=== PATIENT | female | born 1945 | race Caucasian/White ===

== ENCOUNTER 2022-05-13 13:11 | Inpatient (IN) | payer MEDICARE, OTHER ==
[~2022-05-13] VITALS: Ht 175.3 cm; Wt 75.3 kg
[~2022-05-13 13:11] MED LIST: ATENOLOL-CHLOR1 EAC1 PO; POTASSIUM 10MEQ; TENORMIN; Z.0.GLUCOPHAGE1000 M PO; Z.0.PRILOSEC OTC20 M PO; [UNRECOGNIZED DRUG - OTHER]; [UNRECOGNIZED DRUG - OTHER]
[2022-05-13] MEDS ORDERED: ONDANSETRON HCL INJ 2MG/ML 2ML 2 MG/ML VIAL IV STA (14:14)
[2022-05-13] MEDS ORDERED: FENTANYL CITRATE/PF 100MCG/2 ML INJ IV ONE (14:15)
[2022-05-13] MEDS ORDERED: SODIUM CHLORIDE 0.9% 500ML 500 ML IV ONE (14:30)
[2022-05-13 15:13] LABS: BASOPHILS # (AUTO) 0.1 (0.0-0.1); BASOPHILS % 0.4 % (0.0-1.0); EOSINOPHILS # (AUTO) 0.1 (0.0-0.4); EOSINOPHILS % 1.1 % (0.0-6.0); HEMATOCRIT 38.7 % (34.2-44.1); LYMPHOCYTES # (AUTO) 1.3 (1.0-3.2); MEAN CORPUSCULAR HEMOGLOBIN 28.5 pg (28-32); MEAN CORPUSCULAR HGB CONC 33.6 g/dL (31-35); MEAN CORPUSCULAR VOLUME 84.9 fL (81-99); MONOCYTES # (AUTO) 0.7 (0.2-0.8); MONOCYTES % 5.9 % (4.4-11.3); NEUTROPHILS # (AUTO) 9.2 (2.1-6.9); PLATELET COUNT 213 x10e3/uL (140-360); RED BLOOD COUNT 4.56 x10e6/uL (3.6-5.1); RED CELL DISTRIBUTION WIDTH 14.6 % (11.7-14.4)
[2022-05-13] MEDS ORDERED: ACETAMINOPHEN 1000 MG/100 ML IV STA (15:16)
[2022-05-13 15:23] LABS: INR 0.96; PARTIAL THROMBOPLASTIN TIME 26.6 seconds (23.8-35.5); PROTHROMBIN TIME 13.7 seconds (11.9-14.5)
[2022-05-13 15:34] LABS: ALANINE AMINOTRANSFERASE 13 IU/L (0-55); ALBUMIN 4.1 g/dL (3.5-5.0); ALBUMIN/GLOBULIN RATIO 1.2 (0.8-2.0); ALKALINE PHOSPHATASE 65 IU/L (40-150); ANION GAP 19.6 mmol/L (8-16); BLOOD UREA NITROGEN 24 mg/dL (7-26); BUN/CREATININE RATIO 31 (6-25); CALCIUM 8.9 mg/dL (8.4-10.2); CARBON DIOXIDE 26 mmol/L (22-29); CHLORIDE 101 mmol/L (98-107); CREATINE KINASE 24 IU/L (29-168); CREATININE, SERUM 0.77 mg/dL (0.57-1.11); GLUCOSE 104 mg/dL (74-118); MAGNESIUM 1.5 MG/DL (1.3-2.1); SODIUM 144 mmol/L (136-145)
[2022-05-13 15:42] LABS: POTASSIUM 2.6 mmol/L (3.5-5.1)
[2022-05-13] MEDS ORDERED: POTASSIUM CHLORIDE 20 MEQ TAB CR PO STA (16:13)
[2022-05-13] MEDS ORDERED: ONDANSETRON HCL INJ 2MG/ML 2ML 2 MG/ML VIAL IV PRN (17:45)
[2022-05-13] MEDS ORDERED: DEXTROSE 50% SYRINGE 50 ML IV PRN (17:45)
[2022-05-13] MEDS ORDERED: KCL 20MEQ/.9 SOD CHL 1,000 ML IV ONE (17:45)
[2022-05-13] MEDS ORDERED: ACETAMINOPHEN 1000 MG/100 ML IV PRN (18:00)
[2022-05-13] MEDS: FAMOTIDINE 20 MG/2 ML VIAL IV SCH (18:18)
[2022-05-13] MEDS ORDERED: HEPARIN SOD (PORCINE) 5,000 UNIT/ML VIAL SC ONE (18:30)
[2022-05-13 19:27] LABS: CLARITY,URINE CLEAR (CLEAR); COLOR,URINE YELLOW (YELLOW); KETONES,URINE 1+ (NEGATIVE); LEUKOCYTE ESTERASE ,URINE NEGATIVE (NEGATIVE); NITRITE,URINE NEGATIVE (NEGATIVE); PROTEIN,URINE DIPSTICK NEGATIVE (NEGATIVE); URINE UROBILINOGEN 0.2 mg/dL (0.2 - 1)
[2022-05-13 19:33] LABS: BACTERIA,URINE MANY /HPF; WBC,URINE (MAN) 0-5 /HPF (0-5)
[2022-05-13] MEDS ORDERED: POTASSIUM CHLORIDE 20 MEQ TAB CR PO ONE (21:00)
[2022-05-13] MEDS: INSULIN LISPRO 100 UNIT/1 ML 3ML VIAL SQ SCH (21:00)
[2022-05-13 21:24] LABS: CREATINE KINASE 24 IU/L (29-168)
[2022-05-13] MEDS ORDERED: ATENOLOL50 MG PO (22:02)
[2022-05-13] MEDS ORDERED: AMLODIPINE BESY10 MG PO (22:03)
[2022-05-13] MEDS ORDERED: FENTANYL CITRATE/PF 100MCG/2 ML INJ ONE (22:03)
[2022-05-13] MEDS ORDERED: ONDANSETRON HCL INJ 2MG/ML 2ML 2 MG/ML VIAL ONE (22:05)
[2022-05-13] MEDS ORDERED: PROMETHAZINE HC25 M1 PO (22:05)
[2022-05-13] MEDS ORDERED: FLURAZEPAM HCL15 MG PO (22:07)
[2022-05-13] MEDS ORDERED: SERTRALINE HCL100 MG PO (22:07)
[2022-05-13] MEDS ORDERED: ATORVASTATIN CA20 MG PO (22:07)
[2022-05-14] VITALS (8 sets, daily range): BP systolic 102–134; BP diastolic 44–65
[2022-05-14] MEDS ORDERED: IOPAMIDOL 370 MG/ML 100 ML INFUS..BTL INJ ONE (00:50)
[2022-05-14 04:02] LABS: BASOPHILS # (AUTO) 0.1 (0.0-0.1); BASOPHILS % 0.7 % (0.0-1.0); EOSINOPHILS # (AUTO) 0.3 (0.0-0.4); EOSINOPHILS % 3.9 % (0.0-6.0); HEMATOCRIT 35.8 % (34.2-44.1); HEMOGLOBIN 11.7 g/dL (12.0-16.0); LYMPHOCYTES # (AUTO) 1.2 (1.0-3.2); MEAN CORPUSCULAR HEMOGLOBIN 28.7 pg (28-32); MEAN CORPUSCULAR HGB CONC 32.7 g/dL (31-35); MEAN CORPUSCULAR VOLUME 87.7 fL (81-99); MONOCYTES # (AUTO) 0.6 (0.2-0.8); MONOCYTES % 8.6 % (4.4-11.3); NEUTROPHILS # (AUTO) 5.1 (2.1-6.9); NEUTROPHILS % 70.5 % (38.7-80.0); PLATELET COUNT 188 x10e3/uL (140-360); RED BLOOD COUNT 4.08 x10e6/uL (3.6-5.1); RED CELL DISTRIBUTION WIDTH 14.8 % (11.7-14.4)
[2022-05-14] MEDS: Morphine 2mg Syringe 2 MG/ML SYR IV PRN ×3 (04:18→23:05)
[2022-05-14 04:20] LABS: CREATINE KINASE 23 IU/L (29-168)
[2022-05-14 04:41] LABS: ALBUMIN 3.6 g/dL (3.5-5.0); ALBUMIN/GLOBULIN RATIO 1.2 (0.8-2.0); ANION GAP 15.2 mmol/L (8-16); CALCIUM 7.9 mg/dL (8.4-10.2); CREATININE, SERUM 0.61 mg/dL (0.57-1.11); POTASSIUM 3.2 mmol/L (3.5-5.1)
[2022-05-14] MEDS: FAMOTIDINE 20 MG/2 ML VIAL IV SCH ×2 (05:48→16:54)
[2022-05-14] MEDS: INSULIN LISPRO 100 UNIT/1 ML 3ML VIAL SQ SCH ×4 (07:30→20:26)
[2022-05-14] MEDS ORDERED: MIDAZOLAM HCL 2 MG/2 ML VIAL ONE (09:34)
[2022-05-14] MEDS ORDERED: FENTANYL CITRATE/PF 100MCG/2 ML INJ ONE (09:34)
[2022-05-14] MEDS ORDERED: PROPOFOL IV EMULSION 10 MG/ML 20 ML VIAL ONE (10:19)
[2022-05-14] MEDS ORDERED: GLYCOPYRROLATE INJ 0.2 MG/ML VIAL ONE (10:19)
[2022-05-14] MEDS ORDERED: SEVOFLURANE INHAL SOLN 250 ML PEN BTL ONE (10:19)
[2022-05-14] MEDS ORDERED: EPHEDRINE SULFATE INJ 50 MG/ML VIAL ONE (10:19)
[2022-05-14] MEDS ORDERED: POVIDONE IODINE 0.05% 0.05 % ML PO ONE (10:19)
[2022-05-14] MEDS ORDERED: LIDOCAINE HCL 2% LOCAL INJ 5 ML SDV VIAL INJ ONE (10:19)
[2022-05-14] MEDS ORDERED: ONDANSETRON HCL INJ 2MG/ML 2ML 2 MG/ML VIAL ONE (10:19)
[2022-05-14] MEDS ORDERED: DEXAMETHASONE SOD PHOS INJ 4 MG/ML SDV ONE (10:19)
[2022-05-14] MEDS ORDERED: SODIUM CHLORIDE 0.9% 1000ML 1,000 ML IV SCH ×2 (10:45→12:00)
[2022-05-14] MEDS ORDERED: Vancomycin IV 1 GM VIAL ONE (14:13)
[2022-05-14] MEDS ORDERED: BUPIVACAINE HC 0.75% PF 10ML VIAL INJ ONE (14:13)
[2022-05-14] MEDS ORDERED: PROMETHAZINE HCL 25 MG TAB PO PRN (18:45)
[2022-05-14] MEDS: METFORMIN HCL 500 MG TAB PO SCH (20:24)
[2022-05-14] MEDS: TEMAZEPAM 15 MG CAP PO SCH (20:24)
[2022-05-14] MEDS: AMLODIPINE BESYLATE 10 MG TAB PO SCH (20:25)
[2022-05-14] MEDS: SERTRALINE HCL 100 MG TAB PO SCH (20:26)
[2022-05-14] MEDS: ATORVASTATIN 20 MG TAB PO SCH (20:26)
[2022-05-14] MEDS: ONDANSETRON HCL INJ 2MG/ML 2ML 2 MG/ML VIAL IV PRN (23:05)
[2022-05-15] VITALS (8 sets, daily range): BP systolic 122–150; BP diastolic 54–68
[2022-05-15] MEDS ORDERED: SODIUM CHLORIDE 0.9% 1000ML 1,000 ML IV SCH (00:30)
[2022-05-15 05:03] LABS: BASOPHILS # (AUTO) 0.1 (0.0-0.1); BASOPHILS % 0.6 % (0.0-1.0); EOSINOPHILS % 0.4 % (0.0-6.0); HEMATOCRIT 34.1 % (34.2-44.1); HEMOGLOBIN 11.2 g/dL (12.0-16.0); LYMPHOCYTES # (AUTO) 0.6 (1.0-3.2); LYMPHOCYTES % 7.9 % (18.0-39.1); MEAN CORPUSCULAR HEMOGLOBIN 28.4 pg (28-32); MEAN CORPUSCULAR HGB CONC 32.8 g/dL (31-35); MEAN CORPUSCULAR VOLUME 86.3 fL (81-99); MONOCYTES # (AUTO) 0.5 (0.2-0.8); MONOCYTES % 5.9 % (4.4-11.3); NEUTROPHILS # (AUTO) 6.6 (2.1-6.9); NEUTROPHILS % 84.3 % (38.7-80.0); PLATELET COUNT 191 x10e3/uL (140-360); RED BLOOD COUNT 3.95 x10e6/uL (3.6-5.1); RED CELL DISTRIBUTION WIDTH 15.1 % (11.7-14.4)
[2022-05-15 05:28] LABS: ALBUMIN 3.5 g/dL (3.5-5.0); ALBUMIN/GLOBULIN RATIO 1.1 (0.8-2.0); ANION GAP 14.3 mmol/L (8-16); CALCIUM 8.1 mg/dL (8.4-10.2); CHOL/HDL RATIO 3.3 (3.0-3.6); CREATININE, SERUM 0.56 mg/dL (0.57-1.11); POTASSIUM 3.3 mmol/L (3.5-5.1)
[2022-05-15 05:48] LABS: THYROID STIMULATING HORMONE 0.724 uIU/mL (0.350-4.940)
[2022-05-15] MEDS: FAMOTIDINE 20 MG/2 ML VIAL IV SCH ×2 (06:29→16:39)
[2022-05-15] MEDS: INSULIN LISPRO 100 UNIT/1 ML 3ML VIAL SQ SCH ×4 (07:30→20:32)
[2022-05-15] MEDS: METFORMIN HCL 500 MG TAB PO SCH ×2 (08:51→16:41)
[2022-05-15] MEDS: OMEPRAZOLE 20 MG CAP PO SCH (08:51)
[2022-05-15] MEDS: AMLODIPINE BESYLATE 10 MG TAB PO SCH ×2 (08:52→16:41)
[2022-05-15] MEDS: ATENOLOL 50 MG TAB PO SCH ×2 (08:52→10:02)
[2022-05-15] MEDS: CHLORTHALIDONE 25 MG TAB PO SCH (10:02)
[2022-05-15] MEDS ORDERED: MAGNESIUM SULFATE 2GM/50ML 50 ML IV ONE (12:30)
[2022-05-15] MEDS: Morphine 2mg Syringe 2 MG/ML SYR IV PRN ×2 (13:24→20:31)
[2022-05-15] MEDS: ACETAMINOPHEN 325 MG TAB PO PRN ×2 (14:28→22:36)
[2022-05-15] MEDS ORDERED: POTASSIUM CHLORIDE 20 MEQ TAB CR PO NR ×2 (14:30→16:15)
[2022-05-15] MEDS ORDERED: NEXIUM40 MG PO (16:36)
[2022-05-15] MEDS ORDERED: ENOXAPARIN SOD INJ 40 MG/0.4 ML SYR SC SCH (17:00)
[2022-05-15] MEDS: ATORVASTATIN 20 MG TAB PO SCH (20:31)
[2022-05-15] MEDS: TEMAZEPAM 15 MG CAP PO SCH (20:31)
[2022-05-15] MEDS: SERTRALINE HCL 100 MG TAB PO SCH (20:31)
[2022-05-15] MEDS: ONDANSETRON HCL INJ 2MG/ML 2ML 2 MG/ML VIAL IV PRN (20:31)
[2022-05-16 00:20] VITALS: BP 145/57
[2022-05-16 05:00] VITALS: BP 129/65
[2022-05-16] MEDS: Morphine 2mg Syringe 2 MG/ML SYR IV PRN ×2 (05:14→09:38)
[2022-05-16] MEDS: ONDANSETRON HCL INJ 2MG/ML 2ML 2 MG/ML VIAL IV PRN ×2 (05:14→09:37)
[2022-05-16 05:56] LABS: BASOPHILS # (AUTO) 0.1 (0.0-0.1); BASOPHILS % 0.7 % (0.0-1.0); EOSINOPHILS # (AUTO) 0.5 (0.0-0.4); HEMATOCRIT 33.4 % (34.2-44.1); HEMOGLOBIN 10.6 g/dL (12.0-16.0); LYMPHOCYTES # (AUTO) 1.7 (1.0-3.2); LYMPHOCYTES % 24.6 % (18.0-39.1); MEAN CORPUSCULAR HEMOGLOBIN 28.6 pg (28-32); MEAN CORPUSCULAR HGB CONC 31.7 g/dL (31-35); MONOCYTES # (AUTO) 0.9 (0.2-0.8); NEUTROPHILS # (AUTO) 3.6 (2.1-6.9); NEUTROPHILS % 54.1 % (38.7-80.0); PLATELET COUNT 180 x10e3/uL (140-360); RED BLOOD COUNT 3.71 x10e6/uL (3.6-5.1); RED CELL DISTRIBUTION WIDTH 15.6 % (11.7-14.4)
[2022-05-16 06:23] LABS: ANION GAP 13.5 mmol/L (8-16); CALCIUM 8.5 mg/dL (8.4-10.2); CREATININE, SERUM 0.63 mg/dL (0.57-1.11); MAGNESIUM 1.5 MG/DL (1.3-2.1); PHOSPHORUS 2.1 MG/DL (2.3-4.7); POTASSIUM 3.5 mmol/L (3.5-5.1)
[2022-05-16] MEDS: FAMOTIDINE 20 MG/2 ML VIAL IV SCH (06:35)
[2022-05-16] MEDS: INSULIN LISPRO 100 UNIT/1 ML 3ML VIAL SQ SCH ×2 (07:30→11:30)
[2022-05-16 07:48] VITALS: BP 129/56
[2022-05-16 08:20] VITALS: BP 129/54
[2022-05-16] MEDS: CHLORTHALIDONE 25 MG TAB PO SCH (09:29)
[2022-05-16] MEDS: METFORMIN HCL 500 MG TAB PO SCH (09:30)
[2022-05-16] MEDS: OMEPRAZOLE 20 MG CAP PO SCH (09:30)
[2022-05-16] MEDS: ATENOLOL 50 MG TAB PO SCH ×2 (09:30)
[2022-05-16] MEDS: AMLODIPINE BESYLATE 10 MG TAB PO SCH (09:31)
[2022-05-16] MEDS ORDERED: ACETAMINOPHEN-1 EAC4 PO (09:57)
[2022-05-16] MEDS ORDERED: POTASSIUM PHOSPHATE 15 MM in SODIUM CHLORIDE 0.9% 250ML 250 ML IV SCH (10:00)
[2022-05-16 11:16] VITALS: BP 127/48
[2022-05-16] MEDS ORDERED: HYDROCODON-ACE1 EA10 PO (15:11)
== END 2022-05-16 13:12 | disposition home or self-care (01) | DRG 481 ==
LOC: ER 13:28 → ERHOLD 17:44 → MED/SURG 21:47 → MED/SURG2 05-15 10:53
PROVIDERS: ADMIT Internal Medicine; ATTEND Internal Medicine
PROC: 0QS734Z Reposition Left Upper Femur with Internal Fixation Device, Percutaneous Approach (ICD-10-PCS; principal; 2022-05-14 13:07)
DX: S72.012A Unspecified intracapsular fracture of left femur, initial encounter for closed fracture (principal); S32.019A Unspecified fracture of first lumbar vertebra, initial encounter for closed fracture; E87.6 Hypokalemia; I10 Essential (primary) hypertension; E11.69 Type 2 diabetes mellitus with other specified complication; E78.5 Hyperlipidemia, unspecified; E83.42 Hypomagnesemia; W54.1XXA Struck by dog, initial encounter; Y93.89 Activity, other specified; S80.212A Abrasion, left knee, initial encounter; S50.312A Abrasion of left elbow, initial encounter; W01.0XXA Fall on same level from slipping, tripping and stumbling without subsequent striking against object, initial encounter; Y92.018 Other place in single-family (private) house as the place of occurrence of the external cause; Z90.49 Acquired absence of other specified parts of digestive tract; Z88.5 Allergy status to narcotic agent; Z91.048 Other nonmedicinal substance allergy status; K57.30 Diverticulosis of large intestine without perforation or abscess without bleeding; M19.90 Unspecified osteoarthritis, unspecified site; Z80.1 Family history of malignant neoplasm of trachea, bronchus and lung; Z80.3 Family history of malignant neoplasm of breast; Z79.84 Long term (current) use of oral hypoglycemic drugs
CPT/HCPCS: 0223U; 36415; 70450; 71045; 72125; 74177; 76000; 80048; 80053; 80061; 81001; 82550; 82553; 82948; 83735; 83880; 84100; 84443; 84484; 85025; 85610; 85730; 86850; 86900; 93005; 93306; 94799; 97139; 99284; C1713; C1769; J0690; J1100; J1644; J1650; J2001; J2250; J2270; J2405; J3010; J3370; J3475; J7030; J7040; J7050; Q9967

== ENCOUNTER 2022-06-21 13:00 | Outpatient (RCR) | payer MEDICARE ==
[~2022-06-21 13:00] MED LIST changes: +ACETAMINOPHEN-1 EAC4 PO; +AMLODIPINE BESY10 MG PO; +ATENOLOL50 MG PO; +ATORVASTATIN CA20 MG PO; +FLURAZEPAM HCL15 MG PO; +HYDROCODON-ACE1 EA10 PO; +NEXIUM40 MG PO; +PROMETHAZINE HC25 M1 PO; +SERTRALINE HCL100 MG PO
== END 2022-06-22 ==
LOC: PT 13:00
PROVIDERS: ATTEND Orthopaedic Surgery
DX: M16.12 Unilateral primary osteoarthritis, left hip (principal)

== ENCOUNTER 2022-07-21 13:51 | Outpatient (RCR) | payer MEDICARE | END 2022-07-22 | LOC: PT 13:51 | PROVIDERS: ATTEND Orthopaedic Surgery | DX: M16.12 Unilateral primary osteoarthritis, left hip (principal) ==

== ENCOUNTER 2022-08-02 14:00 | Outpatient (RCR) | payer MEDICARE | END 2022-08-22 | LOC: PT 14:00 | PROVIDERS: ATTEND Orthopaedic Surgery | DX: M16.12 Unilateral primary osteoarthritis, left hip (principal) ==